=== PATIENT | male | born 2000 | race Caucasian/White ===

== ENCOUNTER 2024-05-12 13:03 | Outpatient (CLI) | payer OTHER ==
[~2024-05-12 13:03] MED LIST: DIPH-423 PO; FLUO15CR EXT; HYDR15OI TP; PRED10TA PO; TOP25T PO
== END 2024-05-12 23:59 | disposition home or self-care (01) ==
LOC: RAD 13:03
PROVIDERS: ATTEND Chiropractor
DX: S83.92XA Sprain of unspecified site of left knee, initial encounter (principal); S83.91XA Sprain of unspecified site of right knee, initial encounter; X58.XXXA Exposure to other specified factors, initial encounter; Y93.89 Activity, other specified; Y92.89 Other specified places as the place of occurrence of the external cause; Y99.8 Other external cause status
CPT/HCPCS: 73564